=== PATIENT | male | born 1945 | race Caucasian/White ===

== ENCOUNTER 2020-02-03 06:50 | Inpatient (IN) ==
[2020-01-27 13:39] LABS: Appearance,Urine CLEAR (Clear); Bilirubin,Urine Negative (Negative); Color,Urine YELLOW; Culture Indicated,Urine No; Glucose,Urine (UA) Negative (Negative); Ketones,Urine Negative (Negative); Leukocyte Esterase,Urine Negative /ug (Negative); Nitrate,Urine Negative (Negative); Protein,Urine Negative (Negative); Specific Gravity,Urine 1.014 (1.000-1.035); Urine Blood Negative (Negative)
[2020-01-27 14:27] LABS: Basophils % (Auto) 1.8 % (0.0-2.0); Eosinophils # (Auto) 0.14 K/mcL (0.00-0.70); Eosinophils % (Auto) 2.5 % (0.0-7.0); Hematocrit 48.9 % (41.0-55.0); Hemoglobin 16.8 g/dL (13.5-16.5); Lymphocytes # (Auto) 1.82 K/mcL (1.50-4.80); Mean Cell Volume 92.1 fL (80.0-100.0); Mean Corpuscular HGB Conc 34.4 g/dL (31.0-36.0); Mean Platelet Volume 10.7 fL (7.4-10.4); Monocytes # (Auto) 0.59 K/mcL (0.10-0.90); Monocytes % (Auto) 10.7 % (1.0-12.0); Platelet Count 232 K/mcL (140-440); RBC 5.31 M/mcL (4.50-5.90); WBC 5.5 K/mcL (4.5-11.0)
[2020-01-27 15:32] LABS: Blood Urea Nitrogen 19 mg/dL (8-23); Calcium 9.8 mg/dL (8.6-10.4); Carbon Dioxide 27 mmol/L (22-30); Chloride 102 mmol/L (96-108); Glomerular Filtration Rate 54; Glucose 101 mg/dL (70-105)
[~2020-02-03 06:50] MED LIST: ceFAZolin 2 GM in DEXTROSE 5% IN WATER 50 ML IV SCH
[2020-02-03] MEDS ORDERED: IPRATROPIUM/ALBUTEROL 3 ML AMPUL.NEB NEB PRN ×2 (07:00→12:26)
[2020-02-03] MEDS ORDERED: SCOPOLAMINE 1 PATCH PATCH TOPICAL PRN (07:00)
[2020-02-03] MEDS ORDERED: PROPOFOL 200 MG/20 ML VIAL IV ONE (10:35)
[2020-02-03] MEDS ORDERED: ROPIVACAINE HCL/PF 20 ML VIAL IJ ONE (10:35)
[2020-02-03] MEDS ORDERED: PHENYLEPHRINE 10 MG/ML VIAL ONE (10:35)
[2020-02-03] MEDS ORDERED: GLYCOPYRROLATE 0.2 MG/ML VIAL IV ONE (10:35)
[2020-02-03] MEDS ORDERED: TRANEXAMIC ACID 1,000 MG/10 ML VIAL IV ONE ×2 (10:35→12:44)
[2020-02-03] MEDS ORDERED: KETAMINE 100 MG/ML ML ONE (10:35)
[2020-02-03] MEDS ORDERED: LIDOCAINE HCL/PF 100 MG/5 ML SYRINGE IV ONE (10:35)
[2020-02-03] MEDS ORDERED: DEXAMETHASONE 10 MG/ML VIAL ONE (10:35)
[2020-02-03] MEDS ORDERED: MIDAZOLAM 2 MG/2 ML VIAL ONE (10:35)
[2020-02-03] MEDS ORDERED: ONDANSETRON 4 MG/2 ML VIAL ONE (10:35)
[2020-02-03] MEDS ORDERED: BUPIVACAINE 0.5% 50 ML VIAL IJ ONE (11:26)
[2020-02-03] MEDS ORDERED: GENTAMICIN SULFATE 800 MG/20 ML VIAL IR ONE (11:26)
[2020-02-03] MEDS ORDERED: fentaNYL 100 MCG/2 ML VIAL IV PRN (12:26)
[2020-02-03] MEDS ORDERED: PROMETHAZINE 25 MG/ML VIAL IV PRN (12:26)
[2020-02-03] MEDS ORDERED: MEPERIDINE 25 MG/ML SYRINGE IV PRN (12:26)
[2020-02-03] MEDS ORDERED: ONDANSETRON 4 MG/2 ML VIAL IV PRN ×2 (12:26→12:44)
[2020-02-03] MEDS ORDERED: METHOCARBAMOL 1,000 MG/10 ML VIAL IV PRN (12:26)
[2020-02-03] MEDS ORDERED: ACETAMINOPHEN 1,000 MG/100 ML BAG IV ONE (12:26)
[2020-02-03] MEDS ORDERED: LACTATED RINGERS 1,000 ML IV SCH (12:30)
[2020-02-03] MEDS ORDERED: BENZOCAINE/MENTHOL 1 LOZENGE PO PRN (12:44)
[2020-02-03] MEDS ORDERED: morphine 4 MG/ML VIAL IV PRN (12:44)
[2020-02-03] MEDS ORDERED: TEMAZEPAM 15 MG CAPSULE PO PRN (12:44)
[2020-02-03] MEDS ORDERED: BISACODYL 10 MG SUPP.RECT PR PRN (12:44)
[2020-02-03] MEDS ORDERED: MAGNESIUM HYDROXIDE 30 ML ORAL.SUSP PO PRN (12:44)
[2020-02-03] MEDS ORDERED: POLYETHYLENE GLYCOL 3350 17 GM PACKET PO PRN (12:44)
[2020-02-03] MEDS ORDERED: FLEETS ADULT ENEMA PR PRN (12:44)
[2020-02-03] MEDS ORDERED: CETIRIZINE 10 MG TABLET PO PRN (12:47)
--- NOTE | 2020-02-03 13:02 | Brief Operative Note ---
Brief Operative Note Date of procedure: 02/03/20 Pre-op diagnosis: djd right ankle Post-op diagnosis: other Procedure: Right infinity TAR tendoachilles release Grafts/Implants: Yes (Infinity anklr trplacement) Anesthesia: GETA Findings: same Complications: none Complications Description: none Surgeon: Manjit Preciado Estimated blood loss (cc): 50 Tourniquet Time (Minutes): 79 Specimens Removed/Pathology: none sent Condition: stable Disposition: PACU
[2020-02-03] MEDS: 0.9 % SODIUM CHLORIDE 1,000 ML IV SCH ×2 (13:29→22:29)
--- NOTE | 2020-02-03 13:45 | Operative Note ---
DATE OF OPERATION: 02/03/2020 PREOPERATIVE DIAGNOSIS: Degenerative joint disease, right ankle. POSTOPERATIVE DIAGNOSIS: Degenerative joint disease, right ankle.; Achilles tendon contracture right PROCEDURE: Right total ankle replacement.; right Achilles lengthening FIRE MARSHAL: Yordy Jamison PA-C. This providers expertise and technical skill were required throughout the case. The [facility] assisted with preoperative coordination, intraoperative retraction, wound closure, and dressing and splint application, as well as postoperative documentation and care coordination. ANESTHESIA: General, done by Rajat Freedman M.D. TOURNIQUET TIME: 79 minutes. ESTIMATED BLOOD LOSS: 50 mL. SUMMARY OF PROCEDURE: General anesthesia was obtained. The right leg was prepped and draped. A thigh level tourniquet was put up. A curvilinear incision was made over the anterior ankle based on the angiosomes in the area. This was taken down sharply. The saphenous vein and nerve were protected. The lateral flap was full thickness. This was developed down to the retinaculum. The tibialis anterior tendon was identified. The retinaculum was opened and the tendon was mobilized medially. The deep retinaculum and fascia were next opened. The tibialis anterior is mobilized medially. The soft tissue was elevated off of the anterior tibia. The tibia and talus were exposed. The tibial cutting guide was placed as well as the guide system. Proper position was confirmed. The cutting guide was pinned into place. The anterior, medial and lateral cuts were made. The corner cuts were made. After completion of the cuts, osteotomized piece was drilled. The piece was then removed. The cutting guide was then placed on the talus. It was pinned in place. The tibial cut was next made. The 3 peg holes were next made in the tibia using the impactors. A talar trial was placed. It was positioned correctly. The tibia sized to a 3 and the talus to a 2. The cutting guide was pinned in place. We then did the posterior cut on the talus. The bevel cuts were next made with the drill and the guide system. A trial was done of all the components. The best combination of stability with full range of motion or near full range of motion was with a 10 mm insert. The patient had some Achilles tightness. I did a check to see if this was from the gastrocnemius or from Achilles tightening by flexing the knee and it was from a tight Achilles tendon. I therefore did a percutaneous Achilles lengthening. Three stab incisions were made in the tibia over the Achilles tendon. The Achilles tendon was released medially in the proximal and the distal incision and laterally in the middle incision. I was then able to get 15 more degrees of dorsiflexion with manual manipulation of the ankle. The gutters were checked for any bone spurs and these were removed with a rongeur. The bone area was thoroughly irrigated with IrriSept and then with jet lavage. The components were next impacted. The polyethylene was next impacted as well using the appropriate system. The tourniquet was let down. All bleeding points were coagulated. The retinaculum over the tibialis anterior was closed with running 2-0 Vicryl. The subcutaneous tissue was closed with buried interrupted 2-0 Monocryl. The skin was closed with simple and mattress sutures of 2-0 and 3-0 nylon. A sterile compressive dressing was applied. The stab incisions posteriorly were closed with simple sutures of 3-0 nylon. Sponge and needle count was correct. Estimated blood loss was 50 mL. The patient tolerated the procedure well and was taken to the recovery room in stable condition. TJF:alin Job ID: [id number] Doc ID: [id number] Manjit Preciado MD MTDD
--- NOTE | 2020-02-03 14:31 | XRay Report ---
CLINICAL INFORMATION: Bunion correction COMPARISON: None. FINDINGS: Ankle prostheses is anatomically aligned. No surgical procedure performed in the foot proper. No osseous abnormality. Joint spaces are normal. Casting material obscures bony detail IMPRESSION: Negative foot Interpreted and Authenticated by: Toribio Clayton 02/03/20
--- NOTE | 2020-02-03 14:31 | XRay Report ---
CLINICAL INFORMATION: right ankle replacement COMPARISON: None. FINDINGS: Ankle prostheses is anatomically aligned. No osseous abnormality. Casting material obscures bone detail. IMPRESSION: Ankle prostheses is anatomically aligned. Interpreted and Authenticated by: Toribio Clayton 02/03/20
[2020-02-03] MEDS: 0.9 % SODIUM CHLORIDE 10 ML SYRINGE IV SCH ×2 (14:36→20:09)
[2020-02-03] MEDS: ceFAZolin 1 GM VIAL IV SCH (18:12)
[2020-02-03] MEDS: DOCUSATE SODIUM 100 MG CAPSULE PO SCH (20:09)
[2020-02-03] MEDS: ASPIRIN 81 MG TAB.CHEW PO SCH (20:09)
[2020-02-03] MEDS ORDERED: SENNOSIDES 1 TABLET PO SCH (21:00)
[2020-02-04] MEDS: ceFAZolin 1 GM VIAL IV SCH (01:21)
[2020-02-04] MEDS: HYDROcodone/APAP 10/325MG TABLET PO PRN ×3 (01:28→09:49)
[2020-02-04] MEDS: 0.9 % SODIUM CHLORIDE 10 ML SYRINGE IV SCH (04:58)
[2020-02-04] MEDS: ASPIRIN 81 MG TAB.CHEW PO SCH (08:07)
[2020-02-04] MEDS: DOCUSATE SODIUM 100 MG CAPSULE PO SCH (08:08)
[2020-02-04] MEDS ORDERED: LISINOPRIL 10 MG TABLET PO SCH (09:00)
[2020-02-04] MEDS ORDERED: HYDROCHLOROTHIAZIDE 12.5 MG CAPSULE PO SCH (09:00)
[2020-02-04] MEDS ORDERED: CANNABIDIOL PO SCH (09:00)
[2020-02-04] MEDS ORDERED: ACYCLOVIR 400 MG TABLET PO SCH (09:00)
[2020-02-04] MEDS: 0.9 % SODIUM CHLORIDE 1,000 ML IV SCH (11:06)
--- NOTE | 2020-02-04 11:22 | Discharge Plan ---
Discharge Plan Patient/Caregiver Discharge Instructions Activity: non-weight bearing Diet: Regular Diet Prescriptions: New aspirin 81 mg Tablet,Chewable 81 mg PO BID Qty: 60 RF: 0 hydrocodone-acetaminophen 10-325 mg Tablet 1 - 2 tab PO Q4HP PRN (Reason: Per Pain Protocol) Qty: 40 RF: 0 No Action red yeast rice 600 mg tablet 600 mg PO BID RF: 0 cetirizine 10 MG tablet 10 mg PO DAILYP PRN (Reason: Allergic Symptoms) RF: 0 acyclovir 400 MG tablet 400 mg PO DAILY RF: 0 etodolac 500 MG tablet 500 mg PO BID RF: 0 lisinopril 10 mg Tablet 10 mg PO QDAY RF: 0 cholecalciferol (vitamin D3) [Vitamin D3] 25 mcg (1,000 unit) Capsule 25 mcg PO QDAY RF: 0 hydrochlorothiazide 12.5 mg Tablet 12.5 mg PO QDAY RF: 0 krill oil 500 mg Capsule 500 mg PO DAILY RF: 0 cannabidiol 100 mg/mL Solution 500 mg PO DAILY RF: 0 Cannabis Distillate 1 mg inhalation BID RF: 0 Other Ambulatory Orders: [facility] (ONCE) Location: None Selected Ordered By: Manjit Preciado Walker (ONCE) Location: None Selected Ordered By: Manjit Preciado Follow Up Plan Patient Disposition: Home, Self-Care Rehab Potential: Good I certify that the patient requires SNF services: No Overall status at discharge: patient is not back to baseline Discharge Orders: Discharge Order (Routine); Ordered 02/04/20 Ordered By: Manjit Preciado
== END 2020-02-04 13:35 | disposition home or self-care (01) | DRG 469 ==
LOC: MEDSUR 06:50
PROVIDERS: ADMIT Orthopaedic Surgery Foot and Ankle Surgery; ATTEND Orthopaedic Surgery Foot and Ankle Surgery